=== PATIENT | male | born 1970 | race Caucasian/White ===

== ENCOUNTER 2017-08-13 05:40 | Emergency (ER) | payer OTHER ==
[~2017-08-13] VITALS: Ht 180.3 cm; Wt 99.3 kg
[~2017-08-13 05:40] MED LIST: CLEOCIN HCL150 MG PO; NORCO 5-325 TA1 EACH PO
[2017-08-13 05:44] VITALS: BP 161/92
[2017-08-13] MEDS ORDERED: CLEOCIN HCL150 MG PO (05:47)
[2017-08-13] MEDS ORDERED: PERCOCET 7.5-31 EACH PO (05:47)
== END 2017-08-13 06:48 | disposition home or self-care (01) ==
LOC: M.ERS 05:40
DX: K04.7 Periapical abscess without sinus (principal)